=== PATIENT | female | born 1970 | race Caucasian/White ===

== ENCOUNTER 2024-12-04 00:48 | Inpatient (IN) | payer MEDICAID ==
[~2024-12-04] VITALS: Ht 177.8 cm; Wt 115.0 kg
[2024-12-04] VITALS (33 sets, daily range): BP systolic 100–126; BP diastolic 71–94; PULSE 64–99; RESP 13–22; TEMP 97.1–97.4; O2SAT 84–96
[2024-12-04] MEDS: diltiazem-NS 100mg/100ml 100 ML IV SCH ×2 (01:11→10:14)
[2024-12-04 01:13] LABS: BASOPHILS % (AUTO) 0.3 % (0-1); EOSINOPHILS % (AUTO) 0 % (0-6); HEMATOCRIT 50.6 % (35.0-45.0); HEMOGLOBIN 16.8 g/dl (12.0-16.0); LYMPHOCYTES # (AUTO) 0.6 X10'3 (1.1-4.8); LYMPHOCYTES % (AUTO) 6.7 % (21-51); MEAN CORPUSCULAR HEMOGLOBIN 30.8 PG (27.0-31.0); MEAN CORPUSCULAR HGB CONC 33.1 g/dL (33.0-36.5); MEAN CORPUSCULAR VOLUME 92.9 FL (78-98); MEAN PLATELET VOLUME 9.1 FL (7.4-10.4); MONOCYTES # (AUTO) 0.7 X10'3 (0-0.9); MONOCYTES % (AUTO) 7.5 % (2-12); NEUTROPHILS # (AUTO) 7.7 X10'3 (1.8-7.7); NEUTROPHILS % (AUTO) 85.5 % (42-75); PLATELET COUNT 195 X10'3 (140-440); RED BLOOD COUNT 5.45 X10'6 (4.20-5.60); RED CELL DISTRIBUTION WIDTH 14.8 % (11.5-14.5)
[2024-12-04] MEDS: potassium CL 10mEq/100ml bag 100 ML IV SCH (01:15)
[2024-12-04 01:31] LABS: ALANINE AMINOTRANSFERASE 40 U/L (12-78); ALBUMIN 3.2 G/DL (3.4-5.0); ALBUMIN/GLOBULIN RATIO 0.9 (1.1-1.5); ALKALINE PHOSPHATASE 91 IU/L (46-116); ANION GAP 11 (8-16); ASPARTATE AMINO TRANSFERASE 32 U/L (10-37); BILIRUBIN,TOTAL 1.3 MG/DL (0.1-1.0); BLOOD UREA NITROGEN 11 MG/DL (7-18); BUN/CREATININE RATIO 9.2 (10.0-20.0); CALCIUM 9.2 MG/DL (8.5-10.1); CHLORIDE 100 MMOL/L (99-107); CREATININE 1.19 MG/DL (0.40-0.90); GLUCOSE 164 MG/DL (70-104); POTASSIUM 4.7 MMOL/L (3.5-5.1); SODIUM 138 MMOL/L (135-145); TOTAL CARBON DIOXIDE 27.4 MMOL/L (24-32); TOTAL PROTEIN 6.8 G/DL (6.4-8.2); eCRCL 58 ML/MIN; eGFR 47 ML/MIN
[2024-12-04] MEDS: potassium Cl 20 mEq SR tablet PO STA (01:37)
[2024-12-04] MEDS: furosemide 10 MG/1 ML 10ml inj IV ONE (01:38)
[2024-12-04 01:58] LABS: APTT 32 SECONDS (22-32); INR 1.4 INR
[2024-12-04 02:07] LABS: PRO BRAIN NATRIURETIC PEPTIDE 7373 PG/ML (0-125)
[2024-12-04] MEDS: aspirin 81mg tab.chew PO ONE (02:13)
[2024-12-04 02:15] LABS: BILIRUBIN,URINE NEGATIVE (Neg); CLARITY,URINE CLEAR (Clear); COLOR,URINE YELLOW (Yellow); GLUCOSE, URINE NEGATIVE (Neg); KETONES,URINE NEGATIVE (Neg); LEUKOCYTE ESTERASE ,URINE NEGATIVE (Neg); NITRITES, URINE NEGATIVE (Neg); OCCULT BLOOD,URINE LARGE (Neg); PROTEIN,URINE 30 mg/dl (Neg)
[2024-12-04] MEDS: morphine 4 MG/ML inj SYRINge IV ONE (02:38)
[2024-12-04 02:39] LABS: BACTERIA,URINE 1+ /HPF (Neg); RBC,URINE 20-50 /HPF (0-2); SQUAMOUS EPITHELIAL CELL,UR NONE SEEN /LPF (FEW); UA COLLECTION TYPE FOLEY CATH; WBC,URINE NONE SEEN /HPF (0-4)
[2024-12-04] MEDS ORDERED: acetaminophen 325mg tablet PO PRN (02:50)
[2024-12-04] MEDS ORDERED: magnesium Cl slow-release 64mg tablet PO PRN (02:50)
[2024-12-04] MEDS ORDERED: potassium Cl 20 mEq SR tablet PO PRN (02:50)
[2024-12-04] MEDS ORDERED: potassium Cl 40MEQ/1/2NS 520ml 520 ML IV PRN (02:50)
[2024-12-04] MEDS ORDERED: magnesium sulf-water 2g/50mL 50 ML IV PRN (02:50)
[2024-12-04] MEDS ORDERED: ondansetron/PF 4mg/2ml inj IV PRN (02:50)
[2024-12-04] MEDS ORDERED: magnesium sulf-water 4G/100mL 100 ML IV PRN (02:50)
[2024-12-04] MEDS ORDERED: mag hydrox/Alum hydrox/simeth 30ml oral suspension PO PRN (02:50)
[2024-12-04] MEDS ORDERED: magnesium hydroxide 30ml (MOM) UD suspension PO PRN (02:50)
[2024-12-04] MEDS: PERFLUTREN PROTEIN-A MICROSPHR (Optison) 0.22 MG/ML 3ML VIAL IV ONE (02:58)
[2024-12-04 03:14] LABS: MAGNESIUM 2.2 MG/DL (1.5-2.4)
[2024-12-04 03:22] LABS: HEMOGLOBIN A1C 6.1 % (4.5-6.2)
[2024-12-04] MEDS ORDERED: NO HOME MEDS (04:38)
[2024-12-04] MEDS: K and/or MAG REPLACEMENT MC SCH (08:00)
[2024-12-04] MEDS: atorvastatin 20mg tablet PO SCH (08:05)
[2024-12-04] MEDS: apixaban 5mg tablet PO SCH (08:05)
[2024-12-04] MEDS: aspirin 81mg, enteric-coated 1 TAB TABLET.DR PO SCH (08:05)
[2024-12-04] MEDS: furosemide 10 MG/1 ML 10ml inj IV SCH (08:05)
[2024-12-04] MEDS: ipratropium/albuterol 3ml nebule ONE (09:00)
[2024-12-04] MEDS ORDERED: ipratropium/albuterol 3ml nebule NEB PRN (09:05)
[2024-12-04] MEDS: methylPREDNISolone sod succ 125mg/2ml vial IV ONE (09:29)
[2024-12-04] MEDS: apixaban 5mg tablet PO ONE (09:29)
[2024-12-04] MEDS: ipratropium/albuterol 3ml nebule NEB SCH (11:00)
[2024-12-04] MEDS ORDERED: heparin 25,000 UNIT/250ml bag 250 ML IV PRN (11:20)
[2024-12-04] MEDS ORDERED: heparin 10,000 units/1 ML INJ IV PRN (11:20)
[2024-12-04] MEDS: acetaminophen 325mg tablet PO PRN (11:35)
[2024-12-04] MEDS: VANCOMYCIN 1GM 200ML H20 (PEG) 200 ML IV SCH (12:00)
[2024-12-04 12:28] LABS: APTT 30 SECONDS (22-32); INR 1.3 INR; PROTHROMBIN TIME 12.9 SECONDS (9.0-12.0)
[2024-12-04] MEDS: heparin 10,000 units/1 ML INJ IV ONE (12:28)
[2024-12-04] MEDS: heparin 25,000 UNIT/250ml bag 250 ML IV PRN (12:45)
[2024-12-04] MEDS: MESSAGE TO NURSING IV ONE ×2 (14:37→20:10)
[2024-12-04] MEDS ORDERED: LORazepam 2 mg/ml vial IV PRN (16:00)
[2024-12-04] MEDS ORDERED: LORazepam 1 MG tablet PO PRN (16:00)
[2024-12-04] MEDS: piperacillin/tazo 3.375gm/50ml 50 ML IV SCH (16:07)
[2024-12-04] MEDS: methylPREDNISolone sod succ 125mg/2ml vial IV SCH (16:07)
[2024-12-04] MEDS: thiamine 100mg/ml 2ml inj. IV SCH (19:44)
[2024-12-04] MEDS: morphine 2 MG/ML inj. syringe IV PRN (19:48)
[2024-12-04] MEDS ORDERED: apixaban 5mg tablet PO SCH (20:00)
[2024-12-04] MEDS ORDERED: methylPREDNISolone sod succ 125mg/2ml vial IV SCH (20:00)
[2024-12-05] VITALS (31 sets, daily range): BP systolic 100–130; BP diastolic 70–94; PULSE 72–96; RESP 14–29; TEMP 96.9–98; O2SAT 86–91
[2024-12-05 01:12] LABS: BASOPHILS # (AUTO) 0.1 X10'3 (0-0.2); BASOPHILS % (AUTO) 0.5 % (0-1); EOSINOPHILS % (AUTO) 0 % (0-6); HEMATOCRIT 48.3 % (35.0-45.0); HEMOGLOBIN 15.5 g/dl (12.0-16.0); LYMPHOCYTES # (AUTO) 0.5 X10'3 (1.1-4.8); LYMPHOCYTES % (AUTO) 2.9 % (21-51); MEAN CORPUSCULAR HEMOGLOBIN 29.9 PG (27.0-31.0); MEAN CORPUSCULAR HGB CONC 32.2 g/dL (33.0-36.5); MEAN PLATELET VOLUME 9.6 FL (7.4-10.4); MONOCYTES # (AUTO) 0.8 X10'3 (0-0.9); MONOCYTES % (AUTO) 4.9 % (2-12); NEUTROPHILS # (AUTO) 14.5 X10'3 (1.8-7.7); NEUTROPHILS % (AUTO) 91.7 % (42-75); PLATELET COUNT 202 X10'3 (140-440); RED BLOOD COUNT 5.19 X10'6 (4.20-5.60); RED CELL DISTRIBUTION WIDTH 14.8 % (11.5-14.5); WHITE BLOOD COUNT 15.8 X10'3 (4.5-11.0)
[2024-12-05 01:26] LABS: ALANINE AMINOTRANSFERASE 83 U/L (12-78); ALBUMIN 2.8 G/DL (3.4-5.0); ALBUMIN/GLOBULIN RATIO 0.8 (1.1-1.5); ALKALINE PHOSPHATASE 81 IU/L (46-116); ANION GAP 10 (8-16); ASPARTATE AMINO TRANSFERASE 110 U/L (10-37); BILIRUBIN,TOTAL 1.1 MG/DL (0.1-1.0); BLOOD UREA NITROGEN 18 MG/DL (7-18); BUN/CREATININE RATIO 11.9 (10.0-20.0); CALCIUM 9.1 MG/DL (8.5-10.1); CHLORIDE 95 MMOL/L (99-107); CHOL/HDL RATIO 3.8 (0.00-4.99); CHOLESTEROL 114 MG/DL (0-200); CREATININE 1.51 MG/DL (0.40-0.90); GLUCOSE 154 MG/DL (70-104); HDL CHOLESTEROL 30 MG/DL (35-60); LDL CHOLESTEROL 71 MG/DL (50-100); MAGNESIUM 1.6 MG/DL (1.5-2.4); POTASSIUM 4.3 MMOL/L (3.5-5.1); SODIUM 133 MMOL/L (135-145); TOTAL CARBON DIOXIDE 28.4 MMOL/L (24-32); TOTAL PROTEIN 6.4 G/DL (6.4-8.2); TRIGLYCERIDES 55 MG/DL (20-135); eCRCL 46 ML/MIN; eGFR 36 ML/MIN
[2024-12-05] MEDS: morphine 2 MG/ML inj. syringe IV PRN (01:37)
[2024-12-05] MEDS: MESSAGE TO NURSING IV ONE ×3 (02:00→14:51)
[2024-12-05 07:49] LABS: ABG BASE EXCESS -0.9 mmol/L (-2.0-3.0); ABG HCO3 26.3 mmol/L (21.0-28.0); ABG OXYGEN SATURATION 83.5 % (94.0-98.0); ABG PH (T) 7.314 (7.350-7.450); ALLEN'S TEST POSITIVE; FCOHb 0.3 % (0.5-1.5); FHHb 16.4 % (0.0-5.0); FLOW 40 L/min; FMetHb 0.2 % (0.0-1.5); FO2Hb 83.1 % (94.0-98.0); MODE HIGH FLOW; TOTAL HEMOGLOBIN 16.3 G/dl (12.0-16.0)
[2024-12-05] MEDS: pantoprazole 40mg Tablet.DR PO SCH (07:54)
[2024-12-05] MEDS: folic acid 1mg/0.2ml inj IV SCH (07:54)
[2024-12-05] MEDS: metoprolol succinate 25mg (24-HOUR) SR. Tablet PO SCH (07:55)
[2024-12-05] MEDS: multivitamins, therapeutics tablet PO SCH (07:56)
[2024-12-05] MEDS: nicotine 21mg patch - 24 hr TD SCH (08:00)
[2024-12-05] MEDS: diltiazem SR 60mg capsule (twice daily) PO SCH (14:27)
[2024-12-05] MEDS: alteplase 100MG inj. 100 ML IV ONE (20:25)
[2024-12-05] MEDS: VANCOMYCIN LEVEL IV ONE (23:30)
[2024-12-06] VITALS (30 sets, daily range): BP systolic 99–123; BP diastolic 64–86; PULSE 73–96; RESP 16–24; O2SAT 90–97
[2024-12-06] MEDS: HEPARIN DRIP DVT/PE -**PHARMACIST TO DOSE IV ONE
[2024-12-06 00:35] LABS: BASOPHILS % (AUTO) 0.1 % (0-1); EOSINOPHILS % (AUTO) 0.1 % (0-6); HEMATOCRIT 45.1 % (35.0-45.0); HEMOGLOBIN 14.9 g/dl (12.0-16.0); LYMPHOCYTES # (AUTO) 0.3 X10'3 (1.1-4.8); LYMPHOCYTES % (AUTO) 1.7 % (21-51); MEAN CORPUSCULAR VOLUME 90.9 FL (78-98); MEAN PLATELET VOLUME 9.2 FL (7.4-10.4); MONOCYTES # (AUTO) 1.1 X10'3 (0-0.9); MONOCYTES % (AUTO) 5.5 % (2-12); NEUTROPHILS # (AUTO) 17.7 X10'3 (1.8-7.7); NEUTROPHILS % (AUTO) 92.6 % (42-75); PLATELET COUNT 201 X10'3 (140-440); RED BLOOD COUNT 4.96 X10'6 (4.20-5.60); RED CELL DISTRIBUTION WIDTH 14.6 % (11.5-14.5); WHITE BLOOD COUNT 19.1 X10'3 (4.5-11.0)
[2024-12-06 00:43] LABS: ALANINE AMINOTRANSFERASE 88 U/L (12-78); ALBUMIN 2.5 G/DL (3.4-5.0); ALBUMIN/GLOBULIN RATIO 0.7 (1.1-1.5); ALKALINE PHOSPHATASE 75 IU/L (46-116); ANION GAP 10 (8-16); ASPARTATE AMINO TRANSFERASE 104 U/L (10-37); BILIRUBIN,TOTAL 1.3 MG/DL (0.1-1.0); BLOOD UREA NITROGEN 30 MG/DL (7-18); BUN/CREATININE RATIO 16.6 (10.0-20.0); CALCIUM 8.8 MG/DL (8.5-10.1); CHLORIDE 94 MMOL/L (99-107); CREATININE 1.81 MG/DL (0.40-0.90); GLUCOSE 146 MG/DL (70-104); MAGNESIUM 1.7 MG/DL (1.5-2.4); SODIUM 134 MMOL/L (135-145); TOTAL CARBON DIOXIDE 29.6 MMOL/L (24-32); eCRCL 38 ML/MIN; eGFR 29 ML/MIN
[2024-12-06 00:53] LABS: APTT 30 SECONDS (22-32)
[2024-12-06 00:54] LABS: VANCOMYCIN,TROUGH 28.8 ug/mL (10.0-20.0)
[2024-12-06] MEDS: heparin 25,000 UNIT/250ml bag 250 ML IV PRN (01:10)
[2024-12-06] MEDS: HEPARIN DRIP INITAL BOLUS --- DO NOT GIVE/ORDER MC ONE ×2 (01:11)
[2024-12-06] MEDS: MESSAGE TO NURSING IV ONE ×4 (01:43→20:57)
[2024-12-06 07:37] LABS: APTT 53 SECONDS (22-32)
[2024-12-06] MEDS ORDERED: GLUC1TAB75 PO (10:35)
[2024-12-06] MEDS ORDERED: FLAX10007 PO (10:35)
[2024-12-06] MEDS ORDERED: CHOL100053 PO (10:35)
[2024-12-06] MEDS ORDERED: VANCOMYCIN LEVEL IV ONE (12:00)
[2024-12-06 19:15] LABS: ABG BASE EXCESS 4.7 mmol/L (-2.0-3.0); ABG HCO3 29.1 mmol/L (21.0-28.0); ABG OXYGEN SATURATION 92.9 % (94.0-98.0); ABG PCO2 (T) 41.9 mmHg (32.0-45.0); ABG PH (T) 7.459 (7.350-7.450); ABG PO2 (T) 62.6 mmHg (83.0-108.0); ALLEN'S TEST Modified; FHHb 7.1 % (0.0-5.0); FLOW 35 L/min; FMetHb 0.1 % (0.0-1.5); FO2Hb 92.8 % (94.0-98.0); MODE HIGH FLOW; PATIENT TEMPERATURE 36.7; TOTAL HEMOGLOBIN 15.7 G/dl (12.0-16.0)
[2024-12-07] VITALS (24 sets, daily range): BP systolic 130–146; BP diastolic 88–100; PULSE 88–113; RESP 15–29; TEMP 97–97.9; O2SAT 92–99
[2024-12-07 01:14] LABS: BASOPHILS % (AUTO) 0 % (0-1); EOSINOPHILS % (AUTO) 0 % (0-6); HEMATOCRIT 44.9 % (35.0-45.0); HEMOGLOBIN 14.9 g/dl (12.0-16.0); LYMPHOCYTES # (AUTO) 0.4 X10'3 (1.1-4.8); LYMPHOCYTES % (AUTO) 2.1 % (21-51); MEAN CORPUSCULAR HEMOGLOBIN 30.1 PG (27.0-31.0); MEAN CORPUSCULAR HGB CONC 33.2 g/dL (33.0-36.5); MEAN CORPUSCULAR VOLUME 90.7 FL (78-98); MEAN PLATELET VOLUME 9.2 FL (7.4-10.4); MONOCYTES # (AUTO) 1.1 X10'3 (0-0.9); MONOCYTES % (AUTO) 5.9 % (2-12); NEUTROPHILS # (AUTO) 16.9 X10'3 (1.8-7.7); PLATELET COUNT 193 X10'3 (140-440); RED BLOOD COUNT 4.95 X10'6 (4.20-5.60); RED CELL DISTRIBUTION WIDTH 14.4 % (11.5-14.5); WHITE BLOOD COUNT 18.4 X10'3 (4.5-11.0)
[2024-12-07 01:29] LABS: ALANINE AMINOTRANSFERASE 82 U/L (12-78); ALBUMIN 2.3 G/DL (3.4-5.0); ALBUMIN/GLOBULIN RATIO 0.7 (1.1-1.5); ALKALINE PHOSPHATASE 94 IU/L (46-116); ANION GAP 7 (8-16); ASPARTATE AMINO TRANSFERASE 74 U/L (10-37); BLOOD UREA NITROGEN 41 MG/DL (7-18); BUN/CREATININE RATIO 21.1 (10.0-20.0); CALCIUM 8.8 MG/DL (8.5-10.1); CHLORIDE 99 MMOL/L (99-107); CREATININE 1.94 MG/DL (0.40-0.90); GLUCOSE 172 MG/DL (70-104); MAGNESIUM 1.9 MG/DL (1.5-2.4); SODIUM 140 MMOL/L (135-145); TOTAL CARBON DIOXIDE 33.9 MMOL/L (24-32); TOTAL PROTEIN 5.8 G/DL (6.4-8.2); eCRCL 35 ML/MIN; eGFR 27 ML/MIN
[2024-12-07 01:44] LABS: POTASSIUM 2.8 MMOL/L (3.5-5.1)
[2024-12-07] MEDS: MESSAGE TO NURSING IV ONE ×4 (01:56→19:55)
[2024-12-07] MEDS: potassium Cl 20 mEq SR tablet PO PRN (01:57)
[2024-12-07 04:28] LABS: ABG BASE EXCESS 6.9 mmol/L (-2.0-3.0); ABG HCO3 32.4 mmol/L (21.0-28.0); ABG OXYGEN SATURATION 93.8 % (94.0-98.0); ABG PCO2 (T) 47.2 mmHg (32.0-45.0); ABG PH (T) 7.451 (7.350-7.450); ABG PO2 (T) 67.7 mmHg (83.0-108.0); FCOHb 0.1 % (0.5-1.5); FHHb 6.2 % (0.0-5.0); FLOW 35 L/min; FMetHb 0.3 % (0.0-1.5); FO2Hb 93.4 % (94.0-98.0); MODE HIGH FLOW; PATIENT TEMPERATURE 36.4; TOTAL HEMOGLOBIN 15.8 G/dl (12.0-16.0)
[2024-12-07] MEDS ORDERED: magnesium Cl slow-release 64mg tablet PO PRN (08:45)
[2024-12-07] MEDS ORDERED: magnesium sulf-water 4G/100mL 100 ML IV PRN (08:45)
[2024-12-07] MEDS ORDERED: potassium Cl 40MEQ/1/2NS 520ml 520 ML IV PRN (08:45)
[2024-12-07] MEDS ORDERED: magnesium sulf-water 2g/50mL 50 ML IV PRN (08:45)
[2024-12-07] MEDS ORDERED: potassium Cl 20 mEq SR tablet PO PRN (08:45)
[2024-12-07] MEDS ORDERED: diltiazem 30mg tablet PO ONE (08:45)
[2024-12-07] MEDS: potassium Cl 20 mEq SR tablet PO STA ×2 (10:07→10:08)
[2024-12-07] MEDS: furosemide 40mg/4ml inj IV SCH (16:05)
[2024-12-07] MEDS: K and/or MAG REPLACEMENT MC SCH (19:54)
[2024-12-07] MEDS ORDERED: methylPREDNISolone sod succ 125mg/2ml vial IV SCH (20:00)
[2024-12-07] MEDS: diltiazem SR 60mg capsule (twice daily) PO SCH (20:05)
[2024-12-08] VITALS (22 sets, daily range): BP systolic 115–149; BP diastolic 65–97; PULSE 65–120; RESP 13–22; TEMP 96.7–98.1; O2SAT 91–100
[2024-12-08] MEDS: MESSAGE TO NURSING IV ONE ×3 (02:45→19:50)
[2024-12-08] MEDS: heparin 10,000 units/1 ML INJ IV PRN (03:10)
[2024-12-08] MEDS: heparin 25,000 UNIT/250ml bag 250 ML IV PRN (06:11)
[2024-12-08] MEDS: thiamine 100mg tablet PO SCH (07:34)
[2024-12-08 09:19] LABS: BASOPHILS % (AUTO) 0.2 % (0-1); EOSINOPHILS % (AUTO) 0.1 % (0-6); HEMATOCRIT 48.6 % (35.0-45.0); HEMOGLOBIN 16.3 g/dl (12.0-16.0); LYMPHOCYTES # (AUTO) 0.9 X10'3 (1.1-4.8); LYMPHOCYTES % (AUTO) 4.8 % (21-51); MEAN CORPUSCULAR HEMOGLOBIN 30.4 PG (27.0-31.0); MEAN CORPUSCULAR HGB CONC 33.6 g/dL (33.0-36.5); MEAN CORPUSCULAR VOLUME 90.5 FL (78-98); MEAN PLATELET VOLUME 9.8 FL (7.4-10.4); MONOCYTES # (AUTO) 1.2 X10'3 (0-0.9); MONOCYTES % (AUTO) 6.3 % (2-12); NEUTROPHILS # (AUTO) 17.4 X10'3 (1.8-7.7); NEUTROPHILS % (AUTO) 88.6 % (42-75); PLATELET COUNT 275 X10'3 (140-440); RED BLOOD COUNT 5.37 X10'6 (4.20-5.60); RED CELL DISTRIBUTION WIDTH 14.6 % (11.5-14.5); WHITE BLOOD COUNT 19.7 X10'3 (4.5-11.0)
[2024-12-08 09:35] LABS: BILIRUBIN,URINE NEGATIVE (Neg); CLARITY,URINE SLIGHTLY CLOUDY (Clear); COLOR,URINE YELLOW (Yellow); GLUCOSE, URINE NEGATIVE (Neg); KETONES,URINE NEGATIVE (Neg); LEUKOCYTE ESTERASE ,URINE NEGATIVE (Neg); NITRITES, URINE NEGATIVE (Neg); OCCULT BLOOD,URINE LARGE (Neg); PROTEIN,URINE TRACE mg/dl (Neg); UROBILINOGEN,URINE 0.2 E.U/dL (0.2-1.0)
[2024-12-08 09:37] LABS: UA COLLECTION TYPE CLN CATCH MIDSTREAM
[2024-12-08 09:41] LABS: BACTERIA,URINE FEW /HPF (Neg); MUCUS STRANDS FEW /LPF (Neg); RBC,URINE TNTC /HPF (0-2); SQUAMOUS EPITHELIAL CELL,UR FEW /LPF (FEW); WBC,URINE 0-4 /HPF (0-4)
[2024-12-08 09:43] LABS: ALANINE AMINOTRANSFERASE 113 U/L (12-78); ALBUMIN 2.6 G/DL (3.4-5.0); ALBUMIN/GLOBULIN RATIO 0.6 (1.1-1.5); ALKALINE PHOSPHATASE 113 IU/L (46-116); ANION GAP 5 (8-16); ASPARTATE AMINO TRANSFERASE 85 U/L (10-37); BLOOD UREA NITROGEN 36 MG/DL (7-18); BUN/CREATININE RATIO 25.9 (10.0-20.0); CALCIUM 9.3 MG/DL (8.5-10.1); CHLORIDE 98 MMOL/L (99-107); CREATININE 1.39 MG/DL (0.40-0.90); GLUCOSE 114 MG/DL (70-104); MAGNESIUM 2.1 MG/DL (1.5-2.4); SODIUM 140 MMOL/L (135-145); TOTAL CARBON DIOXIDE 36.9 MMOL/L (24-32); TOTAL PROTEIN 6.8 G/DL (6.4-8.2); eCRCL 49 ML/MIN; eGFR 39 ML/MIN
[2024-12-08] MEDS: azithromycin/NS 500mg/250ml 250 ML IV SCH (11:25)
[2024-12-08] MEDS: CefTRIAXone/D5W-Rocephin 1gm 50 ML IV SCH (11:29)
[2024-12-08] MEDS: methylPREDNISolone sod succ 125mg/2ml vial IV SCH (11:32)
[2024-12-09] VITALS (24 sets, daily range): BP systolic 126–151; BP diastolic 67–96; PULSE 65–103; RESP 16–22; TEMP 97–98; O2SAT 91–98
[2024-12-09 01:16] LABS: BASOPHILS % (AUTO) 0.1 % (0-1); EOSINOPHILS % (AUTO) 0 % (0-6); HEMATOCRIT 46.8 % (35.0-45.0); HEMOGLOBIN 15.4 g/dl (12.0-16.0); LYMPHOCYTES # (AUTO) 0.5 X10'3 (1.1-4.8); LYMPHOCYTES % (AUTO) 3.4 % (21-51); MEAN CORPUSCULAR HEMOGLOBIN 29.8 PG (27.0-31.0); MEAN CORPUSCULAR HGB CONC 32.8 g/dL (33.0-36.5); MEAN CORPUSCULAR VOLUME 90.9 FL (78-98); MEAN PLATELET VOLUME 9.5 FL (7.4-10.4); MONOCYTES # (AUTO) 0.6 X10'3 (0-0.9); MONOCYTES % (AUTO) 4.3 % (2-12); NEUTROPHILS # (AUTO) 13.1 X10'3 (1.8-7.7); NEUTROPHILS % (AUTO) 92.2 % (42-75); PLATELET COUNT 185 X10'3 (140-440); RED BLOOD COUNT 5.15 X10'6 (4.20-5.60); RED CELL DISTRIBUTION WIDTH 15.1 % (11.5-14.5); WHITE BLOOD COUNT 14.2 X10'3 (4.5-11.0)
[2024-12-09 01:32] LABS: ALANINE AMINOTRANSFERASE 131 U/L (12-78); ALBUMIN 2.5 G/DL (3.4-5.0); ALBUMIN/GLOBULIN RATIO 0.7 (1.1-1.5); ANION GAP 6 (8-16); ASPARTATE AMINO TRANSFERASE 76 U/L (10-37); BILIRUBIN,TOTAL 0.8 MG/DL (0.1-1.0); BLOOD UREA NITROGEN 37 MG/DL (7-18); BUN/CREATININE RATIO 25.3 (10.0-20.0); CALCIUM 8.7 MG/DL (8.5-10.1); CHLORIDE 95 MMOL/L (99-107); CREATININE 1.46 MG/DL (0.40-0.90); GLUCOSE 192 MG/DL (70-104); POTASSIUM 3.3 MMOL/L (3.5-5.1); SODIUM 141 MMOL/L (135-145); TOTAL CARBON DIOXIDE 39.9 MMOL/L (24-32); TOTAL PROTEIN 6.3 G/DL (6.4-8.2); eCRCL 47 ML/MIN; eGFR 37 ML/MIN
[2024-12-09 01:36] LABS: ALKALINE PHOSPHATASE 114 IU/L (46-116)
[2024-12-09] MEDS: MESSAGE TO NURSING IV ONE ×4 (02:36→22:34)
[2024-12-09] MEDS: folic acid 1mg tablet PO SCH (07:45)
[2024-12-09] MEDS: potassium Cl 20 mEq SR tablet PO PRN (08:02)
[2024-12-09] MEDS: acetaZOLAMIDE IV 500mg inj IV ONE (12:46)
[2024-12-09] MEDS: furosemide 20 MG/2 ML vial IV SCH (20:29)
[2024-12-10] VITALS (16 sets, daily range): BP systolic 116–146; BP diastolic 83–99; PULSE 74–108; RESP 16–20; TEMP 97–97.8; O2SAT 90–98
[2024-12-10] MEDS: MESSAGE TO NURSING IV ONE ×2 (05:51→12:19)
[2024-12-10] MEDS: acetaZOLAMIDE IV 500mg inj IV SCH (08:00)
[2024-12-10 09:10] LABS: BASOPHILS % (AUTO) 0.1 % (0-1); EOSINOPHILS % (AUTO) 0 % (0-6); HEMATOCRIT 48.3 % (35.0-45.0); HEMOGLOBIN 15.6 g/dl (12.0-16.0); LYMPHOCYTES # (AUTO) 0.7 X10'3 (1.1-4.8); LYMPHOCYTES % (AUTO) 3.5 % (21-51); MEAN CORPUSCULAR HEMOGLOBIN 29.3 PG (27.0-31.0); MEAN CORPUSCULAR HGB CONC 32.3 g/dL (33.0-36.5); MEAN CORPUSCULAR VOLUME 90.9 FL (78-98); MEAN PLATELET VOLUME 9.2 FL (7.4-10.4); MONOCYTES # (AUTO) 1.2 X10'3 (0-0.9); MONOCYTES % (AUTO) 5.8 % (2-12); NEUTROPHILS # (AUTO) 18.7 X10'3 (1.8-7.7); NEUTROPHILS % (AUTO) 90.6 % (42-75); PLATELET COUNT 211 X10'3 (140-440); RED BLOOD COUNT 5.32 X10'6 (4.20-5.60); RED CELL DISTRIBUTION WIDTH 14.7 % (11.5-14.5); WHITE BLOOD COUNT 20.6 X10'3 (4.5-11.0)
[2024-12-10 09:26] LABS: PLATELET ESTIMATE NORMAL; TOTAL CELLS COUNTED 100
[2024-12-10 09:29] LABS: ALANINE AMINOTRANSFERASE 146 U/L (12-78); ALBUMIN 2.7 G/DL (3.4-5.0); ALBUMIN/GLOBULIN RATIO 0.7 (1.1-1.5); ALKALINE PHOSPHATASE 122 IU/L (46-116); ANION GAP 6 (8-16); ASPARTATE AMINO TRANSFERASE 54 U/L (10-37); BILIRUBIN,TOTAL 0.7 MG/DL (0.1-1.0); BLOOD UREA NITROGEN 40 MG/DL (7-18); CALCIUM 9.1 MG/DL (8.5-10.1); CHLORIDE 100 MMOL/L (99-107); GLUCOSE 223 MG/DL (70-104); POTASSIUM 3.5 MMOL/L (3.5-5.1); SODIUM 140 MMOL/L (135-145); TOTAL CARBON DIOXIDE 33.8 MMOL/L (24-32); TOTAL PROTEIN 6.5 G/DL (6.4-8.2)
[2024-12-10 09:49] LABS: BUN/CREATININE RATIO 28.2 (10.0-20.0); CREATININE 1.42 MG/DL (0.40-0.90); eCRCL 48 ML/MIN; eGFR 38 ML/MIN
== END 2024-12-10 15:33 | DRG 140 ==
LOC: ER 00:48 → PCU 3S 01:42 → CICU 2S 12-05 20:10 → PCU 3S 12-07 15:59
PROVIDERS: ADMIT Internal Medicine Critical Care Medicine; ATTEND Family Medicine
PROC: 5A09357 Assistance with Respiratory Ventilation, Less than 24 Consecutive Hours, Continuous Positive Airway Pressure (ICD-10-PCS; principal; 2024-12-04)
PROC: 5A0955A Assistance with Respiratory Ventilation, Greater than 96 Consecutive Hours, High Flow/Velocity Cannula (ICD-10-PCS; 2024-12-04)
DX: J44.1 Chronic obstructive pulmonary disease with (acute) exacerbation (principal); J96.01 Acute respiratory failure with hypoxia; I21.A1 Myocardial infarction type 2; I50.23 Acute on chronic systolic (congestive) heart failure; I82.431 Acute embolism and thrombosis of right popliteal vein; I48.91 Unspecified atrial fibrillation; J44.0 Chronic obstructive pulmonary disease with (acute) lower respiratory infection; N17.9 Acute kidney failure, unspecified; Z20.822 Contact with and (suspected) exposure to COVID-19; E66.9 Obesity, unspecified; F17.200 Nicotine dependence, unspecified, uncomplicated; E80.6 Other disorders of bilirubin metabolism; D75.1 Secondary polycythemia; N18.30 Chronic kidney disease, stage 3 unspecified; J20.9 Acute bronchitis, unspecified; I82.451 Acute embolism and thrombosis of right peroneal vein; I82.441 Acute embolism and thrombosis of right tibial vein; Z83.3 Family history of diabetes mellitus; Z68.36 Body mass index [BMI] 36.0-36.9, adult
CPT/HCPCS: 36415; 36600; 71045; 80053; 80061; 80202; 81001; 82803; 83036; 83605; 83735; 83880; 84132; 84145; 84484; 85007; 85018; 85025; 85610; 85730; 87040; 87081; 87502; 87503; 87811; 93005; 93306; 93308; 93970; 94640; 94660; 94760; 94799; 96374; 97116; 97161; 97530; 99291; A4615; A4620; A6213; A6258; A6446; A6449; A7526; G0378; J0456; J0696; J1120; J1644; J1940; J2270; J2543; J2919; J2997; J3372; J3411; J3490; J7040